=== PATIENT | female | born 1930 | race Caucasian/White ===

== ENCOUNTER 2016-03-27 18:06 | Inpatient (IN) | payer OTHER ==
[~2016-03-27] VITALS: Ht 165.1 cm; Wt 73.1 kg
--- NOTE | ~2016-03-27 | PR ---
[place], [place] PROGRESS NOTE NAME: EDUIN JOHNSON UNIT #: [id number] ROOM: [facility] DOCTOR: VARSHA SAMS MD BIRTHDATE: [birth year] DOS: 03/29/2016 REFERRING PHYSICIAN: Dr. Guerrero. REASON FOR VISIT: NSTEMI. SUBJECTIVE: The patient is feeling better. Denies any chest pain or shortness of breath. She slept good last night. No PND, no orthopnea, no edema. She would like to go home today. REVIEW OF SYSTEMS: Review of the 8 systems negative except as mentioned above. RHYTHM STRIPS: The patient is in sinus rhythm. PHYSICAL EXAMINATION: VITAL SIGNS: Blood pressure 126/78, pulse 72, respiratory rate 16. GENERAL: Alert, comfortable, no acute distress. HEENT: Pupils are round and equal. No jaundice. Tongue was moist and pharynx was clear. NECK: Supple, no distended neck veins, no carotid bruit. Thyroid not palpable. CHEST: Symmetrical, nontender. LUNGS: Few scattered rhonchi, but good air entry bilaterally. HEART: Regular. Grade 1/6 systolic murmur. No S3. ABDOMEN: Benign, nontender. Bowel sounds normal. EXTREMITIES: Showed no edema. Distal pulses are palpable. SKIN: Warm and dry. No cyanosis, no clubbing. NEUROLOGIC: The patient is alert, oriented. No focal neurologic deficit. PSYCHIATRIC: The patient is alert with good mood and affect. RECTAL: Deferred. GENITOURINARY: Deferred. REVIEW OF THE DIAGNOSTIC TEST: Labs reviewed. INR 2.3, creatinine 1.2. CBC, chemistry unremarkable except as above. IMPRESSION: 1. Non ST-segment elevation myocardial infarction, stable. Denies any chest pain. 2. Paroxysmal atrial fibrillation. 3. Hypertension. 4. Chronic kidney disease. RECOMMENDATIONS: 1. Currently, her blood pressure and heart rates are stable, and she is stable without any chest pain. INR is therapeutic at 2.3. 2. She would like to go home today, and I had a long discussion with her and her family members, daughter who is at bedside and both aware of risk of recurrent myocardial infarction, and subsequent complications including sudden cardiac , and they would like to go home and they declined any further cardiac testing such as stress test or cardiac catheterization. The family also aware that we could not do 2D echo on the weekends to assess her LV function. [place], [place] PROGRESS NOTE NAME: EDUIN JOHNSON UNIT #: [id number] ROOM: [facility] DOCTOR: LATRELL BARRON,VARSHA BIRTHDATE: [birth year] They would like to follow with a tax investigator tomorrow and Dr. Zhou on Wednesday. 3. She is on aspirin, beta blockers, sublingual nitroglycerin tablet, statins and CLAUDINE inhibitors at home, and her blood pressures are stable and so continue current cardiac medications, and she will contact Dr. Zhou's office tomorrow to move her appointment to an earlier date next week. She was advised to go to the Emergency Room if she developed refractory chest pain or if she needs more than three sublingual nitroglycerins for one episode of chest pain. 4. The nursing staff was present in the room during my communication, and again the patient and her family aware of cardiac risks by not having further cardiac testing. VARSHA SAMS MD CM:DILLAN [id number] VARSHA SAMS MD 03/30/16 0708 interface
--- NOTE | ~2016-03-27 | CON ---
[place], [place] REPORT OF CONSULTATION NAME: EDUIN JOHNSON UNIT #: [id number] ROOM: [facility] DOCTOR: VARSHA SAMS MD BIRTHDATE: [birth year] DOS: 03/28/2016 CARDIOLOGY CONSULTATION CONSULTING PHYSICIAN: Dr. Sil Guerrero. PRIMARY CARE PHYSICIAN: Dr. Dave Jewell. REASON FOR CONSULTATION: Chest pain and elevated cardiac enzymes. CLINICAL HISTORY: The patient is an 85-year-old patient with history of hypertension, atrial fibrillation, came to the Emergency Room with chest pain. She noted this pain prior to arrival to the Emergency Room. She described this as a heaviness in the midsternal area, radiated to her left shoulder and left ankle area. She described this as a heaviness mild to moderate in severity. She did have some nausea and vomiting as well as diaphoresis with his chest pain. She took some aspirin at home and finally she came to the Emergency Room and by the time she came to Emergency Room her chest pain is mostly resolved. She has similar episode of chest pain in January, but she did not seek any attention at that time. She was recently diagnosed with atrial fibrillation couple of months ago and was started on Coumadin. Apparently, her pain came at rest. She has no prior history of documented coronary artery disease. She denies any fever and chills, no palpitation, no edema, no PND, no orthopnea, no vomiting or diarrhea. No headaches. No tingling, numbness or weakness. REVIEW OF SYSTEMS: Review of the 8 systems negative except as mentioned above. PAST MEDICAL HISTORY: 1. Atrial fibrillation. 2. Hypertension. 3. Chronic kidney disease. 4. Acid reflux. PAST SURGICAL HISTORY: History of hysterectomy and appendectomy. SOCIAL HISTORY: The patient does not smoke or drink, does not use illicit drugs. She lives with her daughter and son-in-law. FAMILY HISTORY: Mother in age of 68, history of coronary artery disease. Father at the age of 80s, history of coronary artery disease. ALLERGIES: This patient has no known drug allergies. HOME MEDICATIONS: Include aspirin, digoxin, Lasix, lisinopril, metoprolol, omeprazole, Paxil and Coumadin. PHYSICAL EXAMINATION: VITAL SIGNS: Blood pressure 120/80, pulse 66, respiratory rate 16, weight 73.1 kilos, BMI 26.8. GENERAL: Alert, comfortable, in no acute distress. [place], [place] REPORT OF CONSULTATION NAME: EDUIN JOHNSON UNIT #: [id number] ROOM: [facility] DOCTOR: LATRELL BARRON,FARZANACODI BIRTHDATE: [birth year] HEENT: Pupils are round and equal. No jaundice. Tongue was moist and pharynx was clear. NECK: Supple, no distended neck veins, no carotid bruit. CHEST: Symmetrical, nontender. LUNGS: Clear to auscultation bilaterally. HEART: Irregularly irregular, no S3, grade 1/6 systolic murmur. ABDOMEN: Benign, nontender. Bowel sounds normal. EXTREMITIES: Showed no edema. Distal pulses are palpable. SKIN: Warm and dry. No cyanosis or no clubbing. NEUROLOGIC: The patient is alert, oriented. No focal neurologic deficit. GENITOURINARY: Deferred. RECTAL: Deferred. MUSCULOSKELETAL: No joint tenderness or pain. REVIEW OF THE DIAGNOSTIC TESTS: EKG showed atrial fibrillation with rapid ventricular rate. There lateral ST-T changes. PERTINENT LABS: Including CPK 96 and 112, CK-MB 5.3 and 4.7, troponin 0.51 and 0.31, creatinine 1.12, hemoglobin 15.1, platelets 179,000, vitamin D 19.1, INR 2.8. IMPRESSION: 1. Non-ST segment elevation myocardial infarction. 2. Paroxysmal atrial fibrillation. 3. Hypertension. 4. Chronic kidney disease stage 3. 5. Vitamin D deficiency. RECOMMENDATIONS: 1. She denies any chest pain currently; her blood pressure and heart rates are stable. 2. Discontinue Lovenox and her INR is 2.8. 3. Continue her aspirin, beta blockers, and statins. I had a long discussion with the patient and her daughter who is at bedside regarding her NSTEMI. I would recommend cardiac catheterization for further evaluation of her NSTEMI and also for underlying coronary artery disease. Risks, complications and benefits of the cardiac catheterization, angioplasty of the stent as well as the possible bypass were discussed at length and all questions are answered. The patient would like to think about it regarding cardiac catheterization, which will be scheduled for Wednesday in [place], [place] at [facility]. Meanwhile I will hold her Coumadin and give vitamin K 5 mg today to reverse her Coumadin and discontinue Lovenox. Hold her lisinopril due to her creatinine being 1.1. Continue rest of her medications. [place], [place] REPORT OF CONSULTATION NAME: EDUIN JOHNSON UNIT #: [id number] ROOM: [facility] DOCTOR: LATRELL BARRON,VARSHA BIRTHDATE: [birth year] She decided to go for cardiac catheterization this should be scheduled for Wednesday; however, if she develops refractory chest pain with significant EKG changes, I would recommend emergency cardiac catheterization. About treatment plan discussed with the patient and her family members and all questions were answered. She is known to Dr. Pj Zhou, one of my partners with [facility] and she will follow up with him after discharge. VARSHA SAMS MD CM:CONSTR:REPORT OF CONSULTATION [id number] 03/29/16 1511 interface
[~2016-03-27 18:06] MED LIST: KLOR-CON M2020 ME1 PO
[2016-03-27 18:16] VITALS: BP 175/93
[2016-03-27] MEDS ORDERED: FUROSEMIDE40 MG PO (18:20)
[2016-03-27] MEDS ORDERED: Cimetidine300 MG PO (18:21)
[2016-03-27] MEDS ORDERED: NITROSTAT0.4 MG SL (18:21)
[2016-03-27] MEDS ORDERED: LISINOPRIL5 MG PO (18:21)
[2016-03-27] MEDS ORDERED: DIGOXIN0.25 MG PO (18:21)
[2016-03-27] MEDS ORDERED: WARFARIN SODIUM4 MG PO (18:21)
[2016-03-27] MEDS ORDERED: OMEPRAZOLE40 MG PO (18:21)
[2016-03-27 18:45] VITALS: BP 158/79
[2016-03-27 18:50] LABS: BASO % 0.5 % (0.0-1.0); EOS # 0.1 10*3/uL (0.0-0.4); EOS % 2.2 % (1.0-4.0); HEMATOCRIT 45.9 % (37.0-47.0); LYMPH # 1.2 10*3/uL (1.3-4.4); LYMPH % 20.9 % (27.0-41.0); MEAN CELL VOLUME 88.1 fl (81.0-99.0); MEAN CORPUSCULAR HGB 28.8 pg (27.0-31.0); MEAN CORPUSCULAR HGB CONC 32.7 g/dl (33.0-37.0); MEAN PLATELET VOLUME 11.6 fl (9.6-12.3); MONO # 0.7 10*3/uL (0.1-1.0); MONO % 12.6 % (3.0-9.0); NEUT # 3.7 10*3/uL (2.3-7.9); NEUT % 63.5 % (47.0-73.0); PLATELET COUNT AUTOMATED 164 10*3/uL (130-400); RED BLOOD COUNT 5.21 10*6/uL (4.10-5.10); RED CELL DISTRI WIDTH 15.6 % (0-14.5); WHITE BLOOD COUNT 5.8 10*3/uL (4.8-10.8)
[2016-03-27 19:00] VITALS: BP 151/85
[2016-03-27 19:05] LABS: INTERNATIONAL NORM RATIO 3.1 (2.0-3.5); PROTHROMBIN TIME 33.6 SECONDS (9.0-12.4)
[2016-03-27 19:13] LABS: BUN 22 mg/dl (7-24); CARBON DIOXIDE 22 mmol/L (21-32); CHLORIDE 106 mmol/L (98-107); CKMB 1.4 ng/ml (0.5-3.6); CPK 71 U/L (26-192); EST GLOM FILT AFRICAN AMERICAN 56 ml/min; GLUCOSE 125 mg/dL (65-99); SODIUM 141 mmol/L (136-145)
[2016-03-27 19:17] LABS: TROPONIN I < 0.015 ng/ml (<0.5)
[2016-03-27 19:59] VITALS: BP 153/84
[2016-03-27 21:15] VITALS: BP 160/94
[2016-03-27] MEDS ORDERED: COUMADIN2 M1 PO (23:01)
[2016-03-27] MEDS ORDERED: ASPIR LOW81 MG PO (23:01)
[2016-03-27] MEDS ORDERED: PAROXETINE10 MG PO (23:01)
[2016-03-27] MEDS ORDERED: TOPROL XL25 MG PO (23:02)
[2016-03-28] VITALS (7 sets, daily range): BP systolic 94–155; BP diastolic 71–106
[2016-03-28 00:35] LABS: CKMB 4.1 ng/ml (0.5-3.6); TROPONIN I 0.348 ng/ml (<0.5)
[2016-03-28 06:05] LABS: BASO % 0.5 % (0.0-1.0); EOS # 0.2 10*3/uL (0.0-0.4); EOS % 2.9 % (1.0-4.0); HEMATOCRIT 45.7 % (37.0-47.0); HEMOGLOBIN 15.1 g/dl (12.0-16.0); LYMPH # 1.9 10*3/uL (1.3-4.4); LYMPH % 32.2 % (27.0-41.0); MEAN CORPUSCULAR HGB 28.8 pg (27.0-31.0); MEAN PLATELET VOLUME 10.9 fl (9.6-12.3); MONO # 0.8 10*3/uL (0.1-1.0); MONO % 13.1 % (3.0-9.0); NEUT % 51.1 % (47.0-73.0); PLATELET COUNT AUTOMATED 179 10*3/uL (130-400); RED BLOOD COUNT 5.25 10*6/uL (4.10-5.10); RED CELL DISTRI WIDTH 15.5 % (0-14.5); WHITE BLOOD COUNT 5.9 10*3/uL (4.8-10.8)
[2016-03-28 06:32] LABS: HEMOGLOBIN A1c 5.8 % (4.8-5.6)
[2016-03-28 06:33] LABS: CKMB 5.3 ng/ml (0.5-3.6)
[2016-03-28 06:34] LABS: TROPONIN I 0.514 ng/ml (<0.5)
[2016-03-28 06:44] LABS: ALBUMIN 3.7 gm/dl (3.1-4.5); BILIRUBIN, TOTAL 0.7 mg/dl (0.2-1.0); DIGOXIN 0.73 ng/ml (0.8-2.0); MAGNESIUM 1.8 mg/dL (1.5-2.1); PHOSPHOROUS 3.2 mg/dL (2.5-4.9); POTASSIUM 3.6 mmol/L (3.5-5.1); THYROID STIM HORMONE (HS) 3.93 uIU/ml (0.358-4.75); TOTAL PROTEIN 6.7 gm/dL (6.4-8.2)
[2016-03-28 06:51] LABS: INTERNATIONAL NORM RATIO 2.8 (2.0-3.5); PROTHROMBIN TIME 30.3 SECONDS (9.0-12.4)
[2016-03-28 07:48] LABS: FOLIC ACID 6.6 ng/mL (>5.38); VITAMIN D, 25-HYDROXY 19.3 ng/mL (30-100)
[2016-03-28 12:24] LABS: CKMB 4.7 ng/ml (0.5-3.6); TROPONIN I 0.317 ng/ml (<0.5)
[2016-03-29] VITALS: BP 150/90
[2016-03-29 04:00] VITALS: BP 140/80
[2016-03-29 05:36] LABS: POTASSIUM 3.4 mmol/L (3.5-5.1)
[2016-03-29 06:07] LABS: BASO % 0.5 % (0.0-1.0); EOS # 0.2 10*3/uL (0.0-0.4); EOS % 3.1 % (1.0-4.0); HEMATOCRIT 47.5 % (37.0-47.0); HEMOGLOBIN 15.8 g/dl (12.0-16.0); LYMPH # 1.9 10*3/uL (1.3-4.4); LYMPH % 29.1 % (27.0-41.0); MEAN CELL VOLUME 87.6 fl (81.0-99.0); MEAN CORPUSCULAR HGB 29.2 pg (27.0-31.0); MEAN CORPUSCULAR HGB CONC 33.3 g/dl (33.0-37.0); MEAN PLATELET VOLUME 11.4 fl (9.6-12.3); MONO # 0.9 10*3/uL (0.1-1.0); MONO % 13.3 % (3.0-9.0); NEUT # 3.5 10*3/uL (2.3-7.9); NEUT % 53.7 % (47.0-73.0); PLATELET COUNT AUTOMATED 189 10*3/uL (130-400); RED BLOOD COUNT 5.42 10*6/uL (4.10-5.10); RED CELL DISTRI WIDTH 15.7 % (0-14.5); WHITE BLOOD COUNT 6.5 10*3/uL (4.8-10.8)
[2016-03-29 06:37] LABS: INTERNATIONAL NORM RATIO 2.3 (2.0-3.5); PROTHROMBIN TIME 25.5 SECONDS (9.0-12.4)
[2016-03-29 08:00] VITALS: BP 126/78
[2016-03-29 12:00] VITALS: BP 130/82
[2016-03-29] MEDS ORDERED: LIPITOR20 MG PO (13:07)
[2016-03-29] MEDS ORDERED: D-1000 185 MG-11 TAB PO (13:07)
[2016-03-29] MEDS ORDERED: KLOR-CON M2020 ME1 PO (13:07)
== END 2016-03-29 13:21 | disposition home or self-care (01) | DRG 281 ==
LOC: ED 18:06 → EDHOLD 19:56 → 4E 20:13 → ICCU 03-28 10:25
PROVIDERS: Emergency Medicine; Hospitalist; Internal Medicine
DX: I21.4 Non-ST elevation (NSTEMI) myocardial infarction (principal); D68.59 Other primary thrombophilia; I48.0 Paroxysmal atrial fibrillation; I48.2 Chronic atrial fibrillation; N18.3 Chronic kidney disease, stage 3 (moderate); I12.9 Hypertensive chronic kidney disease with stage 1 through stage 4 chronic kidney disease, or unspecified chronic kidney disease; K21.9 Gastro-esophageal reflux disease without esophagitis; E87.6 Hypokalemia; E55.9 Vitamin D deficiency, unspecified; Z90.710 Acquired absence of both cervix and uterus; Z82.49 Family history of ischemic heart disease and other diseases of the circulatory system; Z79.82 Long term (current) use of aspirin; Z79.899 Other long term (current) drug therapy; Z79.01 Long term (current) use of anticoagulants

== ENCOUNTER 2020-10-18 20:58 | Inpatient (IN) | payer OTHER, MEDICAID ==
[~2020-10-18] VITALS: Ht 162.5 cm; Wt 79.0 kg
[~2020-10-18 20:58] MED LIST changes: +ASPIR LOW81 MG PO; +COUMADIN2 M1 PO; +Cimetidine300 MG PO; +D-1000 185 MG-11 TAB PO; +DIGOXIN0.25 MG PO; +FUROSEMIDE40 MG PO; +LIPITOR20 MG PO; +LISINOPRIL5 MG PO; +NITROSTAT0.4 MG SL; +OMEPRAZOLE40 MG PO; +PAROXETINE10 MG PO; +TOPROL XL25 MG PO; +WARFARIN SODIUM4 MG PO
[2020-10-18 21:02] VITALS: BP 144/90
[2020-10-18 21:39] LABS: BASO # 0.1 10*3/uL (0.0-0.1); BASO % 0.7 % (0.0-1.0); EOS # 0.4 10*3/uL (0.0-0.4); EOS % 4.8 % (1.0-4.0); LYMPH # 1.8 10*3/uL (1.3-4.4); LYMPH % 20.7 % (27.0-41.0); MEAN CELL VOLUME 93.2 fl (81.0-99.0); MEAN CORPUSCULAR HGB 30.7 pg (27.0-31.0); MEAN CORPUSCULAR HGB CONC 32.9 g/dl (33.0-37.0); MEAN PLATELET VOLUME 11.1 fl (9.6-12.3); MONO % 10.8 % (3.0-9.0); NEUT # 5.6 10*3/uL (2.3-7.9); NEUT % 62.6 % (47.0-73.0); PLATELET COUNT AUTOMATED 203 10*3/uL (130-400); RED CELL DISTRI WIDTH 14.1 % (0-14.5); WHITE BLOOD COUNT 8.9 10*3/uL (4.8-10.8)
[2020-10-18 21:47] VITALS: BP 163/104
[2020-10-18 21:55] LABS: INTERNATIONAL NORM RATIO 2.8 (2.0-3.5)
[2020-10-18 21:56] VITALS: BP 133/85
[2020-10-18 21:56] LABS: ALBUMIN 3.8 gm/dl (3.1-4.5); ALKALINE PHOSPHATASE 79 U/L (45-117); BUN 26 mg/dl (7-24); CHLORIDE 106 mmol/L (98-107); CREATININE 1.63 mg/dL (0.55-1.02); POTASSIUM 3.9 mmol/L (3.5-5.1); SGOT/AST 44 IU/L (3-35); SGPT/ALT 36 U/L (12-78); SODIUM 140 mmol/L (136-145); TOTAL PROTEIN 7.2 gm/dL (6.4-8.2)
[2020-10-18 22:05] LABS: ACETAMINOPHEN (TYLENOL) < 5.0 ug/ml (10-30); ETHYL ALCOHOL < 3.0 mg/dl (<3); TROPONIN I < 0.015 ng/ml (<0.045)
[2020-10-18 23:01] VITALS: BP 160/90
[2020-10-19] VITALS (8 sets, daily range): BP systolic 138–170; BP diastolic 70–116
[2020-10-19 00:16] LABS: BILIRUBIN Negative (Negative); BLOOD Negative (Negative); CLARITY Clear (Clear); COLOR Yellow (Yellow); GLUCOSE Negative (Negative); KETONE Negative (Negative); LEUKO ESTERASE Negative (Negative); NITRITE Negative (Negative)
[2020-10-19 00:22] LABS: URINE AMPHETAMINES < 1000 (1000ng/ml); URINE BARBITURATES < 200 (200ng/ml); URINE BENZODIAZEPINES < 200 (200ng/ml); URINE CANNABINOIDS (THC) < 50 (50ng/ml); URINE COCAINE < 300 (300ng/ml); URINE METHADONE < 300 (300ng/ml); URINE OPIATES < 300 (300ng/ml)
[2020-10-19 00:25] LABS: URINE PHENCYCLIDINE < 25 (25ng/ml)
[2020-10-19 00:39] LABS: RBC 0-2 rbc/hpf (0-2); WBC 0-2 wbc/hpf (0-5)
[2020-10-19 04:43] LABS: BASO # 0.1 10*3/uL (0.0-0.1); BASO % 0.8 % (0.0-1.0); EOS # 0.4 10*3/uL (0.0-0.4); EOS % 6.9 % (1.0-4.0); LYMPH # 1.3 10*3/uL (1.3-4.4); LYMPH % 21.5 % (27.0-41.0); MEAN CORPUSCULAR HGB 30.7 pg (27.0-31.0); MEAN CORPUSCULAR HGB CONC 31.9 g/dl (33.0-37.0); MEAN PLATELET VOLUME 11.1 fl (9.6-12.3); MONO # 0.6 10*3/uL (0.1-1.0); MONO % 10.6 % (3.0-9.0); NEUT # 3.6 10*3/uL (2.3-7.9); NEUT % 59.9 % (47.0-73.0); PLATELET COUNT AUTOMATED 150 10*3/uL (130-400); RED BLOOD COUNT 3.84 10*6/uL (4.10-5.10)
[2020-10-19 04:55] LABS: INTERNATIONAL NORM RATIO 2.3 (2.0-3.5)
[2020-10-19 04:56] LABS: MEAN CELL VOLUME 96.4 fl (81.0-99.0)
[2020-10-19 05:00] LABS: ALBUMIN 3.5 gm/dl (3.1-4.5); CREATININE 1.44 mg/dL (0.55-1.02)
[2020-10-19 05:01] LABS: TOTAL PROTEIN 6.1 gm/dL (6.4-8.2)
[2020-10-19 05:07] LABS: FREE T4 1.07 ng/dl (0.76-1.46); THYROID STIM HORMONE (HS) 3.45 uIU/ml (0.358-4.75)
[2020-10-20] VITALS: BP 163/99
[2020-10-20 04:00] VITALS: BP 181/97
[2020-10-20 06:09] LABS: BASO # 0.1 10*3/uL (0.0-0.1); BASO % 0.7 % (0.0-1.0); EOS # 0.5 10*3/uL (0.0-0.4); EOS % 6.7 % (1.0-4.0); HEMATOCRIT 38.7 % (37.0-47.0); LYMPH % 14.1 % (27.0-41.0); MEAN CORPUSCULAR HGB 31.1 pg (27.0-31.0); MONO # 0.6 10*3/uL (0.1-1.0); MONO % 8.6 % (3.0-9.0); NEUT # 4.7 10*3/uL (2.3-7.9); NEUT % 69.5 % (47.0-73.0); PLATELET COUNT AUTOMATED 146 10*3/uL (130-400); RED BLOOD COUNT 3.99 10*6/uL (4.10-5.10); WHITE BLOOD COUNT 6.7 10*3/uL (4.8-10.8)
[2020-10-20 06:12] LABS: BUN 17 mg/dl (7-24); CHLORIDE 111 mmol/L (98-107); CREATININE 1.04 mg/dL (0.55-1.02); POTASSIUM 3.4 mmol/L (3.5-5.1); SODIUM 140 mmol/L (136-145)
[2020-10-20 06:24] LABS: INTERNATIONAL NORM RATIO 2.3 (2.0-3.5)
[2020-10-20 08:00] VITALS: BP 145/89
[2020-10-20] MEDS ORDERED: LASIX20 MG PO (11:25)
[2020-10-20] MEDS ORDERED: BENADRYL25 M2 PO (11:25)
[2020-10-20] MEDS ORDERED: DIGOX125 MCG PO (11:27)
[2020-10-20] MEDS ORDERED: PAROXETINE20 MG PO (11:29)
[2020-10-20] MEDS ORDERED: ISOSORBIDE MONO10 MG PO (11:29)
[2020-10-20] MEDS ORDERED: LISINOPRIL30 MG PO (11:30)
[2020-10-20] MEDS ORDERED: LEVOTHYROXINE25 MCG PO (11:30)
[2020-10-20] MEDS ORDERED: TRAZODONE50 MG PO (11:32)
[2020-10-20] MEDS ORDERED: MEMANTINE HCL5 MG PO (11:33)
[2020-10-20] MEDS ORDERED: METOPROLOL SUCC50 M1 PO (11:33)
[2020-10-20] MEDS ORDERED: ATORVASTATIN CA40 M1 PO (11:34)
[2020-10-20] MEDS ORDERED: DONEPEZIL HYDROC5 MG PO (11:35)
[2020-10-20] MEDS ORDERED: Coumadin2 MG PO (11:35)
== END 2020-10-20 13:08 | DRG 189 ==
LOC: ED 20:58 → EDHOLD 10-19 01:02 → 4E 10-19 19:28
PROVIDERS: Emergency Medicine; Family Medicine; Internal Medicine; ADMIT Emergency Medicine; ATTEND Emergency Medicine
DX: J96.00 Acute respiratory failure, unspecified whether with hypoxia or hypercapnia (principal); N17.0 Acute kidney failure with tubular necrosis; G93.41 Metabolic encephalopathy; I48.20 Chronic atrial fibrillation, unspecified; E87.2 Acidosis; D68.9 Coagulation defect, unspecified; F02.81 Dementia in other diseases classified elsewhere, unspecified severity, with behavioral disturbance; Z79.82 Long term (current) use of aspirin; Z66 Do not resuscitate; Z51.5 Encounter for palliative care; E86.0 Dehydration; R00.0 Tachycardia, unspecified; E80.6 Other disorders of bilirubin metabolism; R74.01 Elevation of levels of liver transaminase levels; K21.9 Gastro-esophageal reflux disease without esophagitis; N18.32 Chronic kidney disease, stage 3b; E78.5 Hyperlipidemia, unspecified; F63.81 Intermittent explosive disorder; E55.9 Vitamin D deficiency, unspecified; F41.9 Anxiety disorder, unspecified; G30.9 Alzheimer's disease, unspecified; I12.9 Hypertensive chronic kidney disease with stage 1 through stage 4 chronic kidney disease, or unspecified chronic kidney disease; Z90.49 Acquired absence of other specified parts of digestive tract; Z90.710 Acquired absence of both cervix and uterus; Z82.49 Family history of ischemic heart disease and other diseases of the circulatory system; Z79.899 Other long term (current) drug therapy

== ENCOUNTER 2020-10-20 13:19 | Inpatient (IN) | payer OTHER, MEDICAID ==
[~2020-10-20] VITALS: Ht 160 cm; Wt 78.9 kg
[~2020-10-20 13:19] MED LIST changes: +ATORVASTATIN CA40 M1 PO; +BENADRYL25 M2 PO; +Coumadin2 MG PO; +DIGOX125 MCG PO; +DONEPEZIL HYDROC5 MG PO; +ISOSORBIDE MONO10 MG PO; +LASIX20 MG PO; +LEVOTHYROXINE25 MCG PO; +LISINOPRIL30 MG PO; +MEMANTINE HCL5 MG PO; +METOPROLOL SUCC50 M1 PO; +PAROXETINE20 MG PO; +TRAZODONE50 MG PO
[2020-10-20 15:10] VITALS: BP 140/88
[2020-10-20 20:00] VITALS: BP 127/87
[2020-10-21 06:24] LABS: BASO # 0.1 10*3/uL (0.0-0.1); BASO % 0.6 % (0.0-1.0); EOS # 0.6 10*3/uL (0.0-0.4); EOS % 7.2 % (1.0-4.0); HEMATOCRIT 40.3 % (37.0-47.0); LYMPH # 1.5 10*3/uL (1.3-4.4); LYMPH % 19.4 % (27.0-41.0); MEAN CELL VOLUME 96.9 fl (81.0-99.0); MEAN CORPUSCULAR HGB 30.8 pg (27.0-31.0); MEAN CORPUSCULAR HGB CONC 31.8 g/dl (33.0-37.0); MEAN PLATELET VOLUME 11.2 fl (9.6-12.3); MONO # 0.8 10*3/uL (0.1-1.0); MONO % 10.2 % (3.0-9.0); NEUT # 4.9 10*3/uL (2.3-7.9); NEUT % 62.1 % (47.0-73.0); PLATELET COUNT AUTOMATED 179 10*3/uL (130-400); RED BLOOD COUNT 4.16 10*6/uL (4.10-5.10); RED CELL DISTRI WIDTH 14.1 % (0-14.5); WHITE BLOOD COUNT 7.9 10*3/uL (4.8-10.8)
[2020-10-21 07:21] LABS: THYROID STIM HORMONE (HS) 7.65 uIU/ml (0.358-4.75)
[2020-10-21 08:00] VITALS: BP 122/58
[2020-10-21 09:30] LABS: VITAMIN D, 25-HYDROXY 38.4 ng/mL (30-100)
[2020-10-21 21:27] VITALS: BP 140/78
[2020-10-22 07:03] VITALS: BP 124/60
[2020-10-22 19:34] VITALS: BP 126/58
[2020-10-23 07:20] VITALS: BP 128/68
[2020-10-23 20:00] VITALS: BP 154/86
[2020-10-24 07:24] VITALS: BP 144/83
[2020-10-24 20:00] VITALS: BP 163/94
[2020-10-25 07:18] VITALS: BP 149/85
[2020-10-25] MEDS ORDERED: MEMANTINE HCL10 MG PO (10:10)
[2020-10-25] MEDS ORDERED: ROZEREM8 MG PO (10:10)
[2020-10-25] MEDS ORDERED: MIRTAZAPINE15 M2 PO (10:10)
[2020-10-25] MEDS ORDERED: RIVASTIGMINE1 EAC2 T (10:10)
[2020-10-25] MEDS ORDERED: RISPERIDONE0.5 MG PO (10:10)
== END 2020-10-25 13:04 | disposition home or self-care (01) | DRG 883 ==
LOC: 3N 13:19
PROVIDERS: Nurse Practitioner Women's Health; ADMIT Psychiatry & Neurology Psychiatry; ATTEND Psychiatry & Neurology Psychiatry
DX: F63.81 Intermittent explosive disorder (principal); N18.30 Chronic kidney disease, stage 3 unspecified; F23 Brief psychotic disorder; I48.20 Chronic atrial fibrillation, unspecified; G30.9 Alzheimer's disease, unspecified; F02.80 Dementia in other diseases classified elsewhere, unspecified severity, without behavioral disturbance, psychotic disturbance, mood disturbance, and anxiety; F41.9 Anxiety disorder, unspecified; E55.9 Vitamin D deficiency, unspecified; I12.9 Hypertensive chronic kidney disease with stage 1 through stage 4 chronic kidney disease, or unspecified chronic kidney disease; K21.9 Gastro-esophageal reflux disease without esophagitis; E78.5 Hyperlipidemia, unspecified; Z90.49 Acquired absence of other specified parts of digestive tract; Z90.710 Acquired absence of both cervix and uterus; Z82.49 Family history of ischemic heart disease and other diseases of the circulatory system

== ENCOUNTER 2020-11-02 19:30 | Emergency (ER) | payer OTHER, MEDICAID ==
[~2020-11-02] VITALS: Ht 160 cm; Wt 75.7 kg
[~2020-11-02 19:30] MED LIST changes: +MEMANTINE HCL10 MG PO; +MIRTAZAPINE15 M2 PO; +RISPERIDONE0.5 MG PO; +RIVASTIGMINE1 EAC2 T; +ROZEREM8 MG PO
[2020-11-02 19:57] LABS: BASO # 0.1 10*3/uL (0.0-0.1); BASO % 0.7 % (0.0-1.0); EOS # 0.4 10*3/uL (0.0-0.4); EOS % 4.4 % (1.0-4.0); HEMATOCRIT 35.3 % (37.0-47.0); LYMPH # 1.5 10*3/uL (1.3-4.4); LYMPH % 16.8 % (27.0-41.0); MEAN CELL VOLUME 94.6 fl (81.0-99.0); MEAN CORPUSCULAR HGB 31.1 pg (27.0-31.0); MEAN CORPUSCULAR HGB CONC 32.9 g/dl (33.0-37.0); MONO % 11.5 % (3.0-9.0); NEUT # 5.9 10*3/uL (2.3-7.9); NEUT % 66.3 % (47.0-73.0); PLATELET COUNT AUTOMATED 225 10*3/uL (130-400); RED BLOOD COUNT 3.73 10*6/uL (4.10-5.10); RED CELL DISTRI WIDTH 14.2 % (0-14.5); WHITE BLOOD COUNT 8.9 10*3/uL (4.8-10.8)
[2020-11-02 20:13] LABS: ALBUMIN 3.2 gm/dl (3.1-4.5); CREATININE 1.46 mg/dL (0.55-1.02); POTASSIUM 3.2 mmol/L (3.5-5.1); TOTAL PROTEIN 6.4 gm/dL (6.4-8.2)
[2020-11-02 20:19] LABS: BILIRUBIN Negative (Negative); BLOOD Negative (Negative); CLARITY Clear (Clear); COLOR Yellow (Yellow); GLUCOSE Negative (Negative); KETONE Trace (Negative); LEUKO ESTERASE 1+ (Negative); NITRITE Negative (Negative); SPECIFIC GRAVITY 1.015 (1.001-1.030)
[2020-11-02 20:25] LABS: BACTERIA 1+
[2020-11-02 20:26] LABS: HYALINE CAST TNTC; RBC 0-2 rbc/hpf (0-2)
[2020-11-02] MEDS ORDERED: CIPRO500 MG PO (21:01)
== END 2020-11-02 21:30 | disposition home or self-care (01) ==
LOC: ED 19:30
PROVIDERS: Internal Medicine
DX: N39.0 Urinary tract infection, site not specified (principal); E87.6 Hypokalemia; N17.9 Acute kidney failure, unspecified; Z79.899 Other long term (current) drug therapy